=== PATIENT | male | born 1960 | race Caucasian/White ===

== ENCOUNTER → 2017-04-29 | Outpatient (CLI) | payer OTHER ==
--- NOTE | 2017-04-29 13:02 | RADIOLOGY REPORT (SQ) ---
EXAM DESCRIPTION: U/S RETROPERITON (RENAL/AORTA) COMPLETED DATE/TIME: 04/29/2017 10:42 am REASON FOR STUDY: HYDRONEPHROSIS, ABNORMAL LEFT TESTICLE R68.89 OTHER GENERAL SYMPTOMS AND SIGNS N1 8.3 CHRONIC KIDNEY DISEASE, STAGE 3 (MODERATE) N13.30 UNSPECIFIED HYDRONEPHROSIS COMPARISON: None. TECHNIQUE: Dynamic and static grayscale images acquired of the kidneys and bladder and recorded on P ACS. Additional selected color Doppler and spectral images recorded. LIMITATIONS: None. FINDINGS: RIGHT KIDNEY: Large cysts are present. The largest measures 14 cm. No identifiable renal parenchyma is present. LEFT KIDNEY: Normal size, 13 cm. Normal echogenicity. No masses. No hydronephrosis. No calcifica tions BLADDER: Normal. Left urinary jet is seen. OTHER FINDINGS: No other significant finding. IMPRESSION: 1. Large cysts are present on the right. No identifiable renal parenchyma was seen. 2. Normal left kidney. TECHNICAL DOCUMENTATION: JOB ID: [id number] [employer]- All Rights Reserved
--- NOTE | 2017-04-29 15:55 | RADIOLOGY REPORT (SQ) ---
EXAM DESCRIPTION: U/S SCROTUM W/DOPPLER COMPLETED DATE/TIME: 04/29/2017 10:42 am REASON FOR STUDY: HYDRONEPHROSIS, ABNORMAL LEFT TESTICLE R68.89 OTHER GENERAL SYMPTOMS AND SIGNS N1 8.3 CHRONIC KIDNEY DISEASE, STAGE 3 (MODERATE) N13.30 UNSPECIFIED HYDRONEPHROSIS COMPARISON: None. TECHNIQUE: Static and realtime singh scale imaging of the scrotum and testes. Selected color Doppler and spectral images recorded to document blood flow. LIMITATIONS: None. FINDINGS: RIGHT: TESTICLE: Normal size. Normal echotexture. Normal blood flow. No mass. EPIDIDYMIS: Normal. HYDROCELE OR VARICOCELE: Trace hydrocele HERNIA OR EXTRA-TESTICULAR MASS: No. OTHER: No other significant finding. LEFT: TESTICLE: Normal size. Normal echotexture. Normal blood flow. No mass. EPIDIDYMIS: Normal. HYDROCELE OR VARICOCELE: Large hydrocele, estimated 4.9 x 4.6 x 2.6 cm. HERNIA OR EXTRA-TESTICULAR MASS: No. OTHER: No other significant finding. IMPRESSION: Bilateral hydroceles, larger on the left. TECHNICAL DOCUMENTATION: JOB ID: [id number] [employer]- All Rights Reserved
== END ==
LOC: RAD 09:19
PROVIDERS: ATTEND Urology
DX: N18.3 Chronic kidney disease, stage 3 (moderate) (principal); N13.30 Unspecified hydronephrosis; R68.89 Other general symptoms and signs
CPT/HCPCS: 76770; 76870; 93976

== ENCOUNTER → 2019-09-03 | Outpatient (CLI) | payer OTHER ==
[2019-09-03 09:04] LABS: ABSOLUTE LYMPHOCYTES (AUTO) 1.2 10^3/uL (0.5-4.7); ABSOLUTE MONOCYTES (AUTO) 0.4 10^3/uL (0.1-1.4); ABSOLUTE NEUT (AUTO) 2.8 10^3/uL (1.7-8.2); BASOPHILS % (AUTO) 0.3 % (0-2); HEMATOCRIT 43.3 % (37.9-51.0); HEMOGLOBIN 15.1 g/dL (13.5-17.0); LYMPHOCYTES % (AUTO) 26.2 % (13-45); MEAN CORPUSCULAR HEMOGLOBIN 31.8 pg (27.0-33.4); MEAN CORPUSCULAR HGB CONC 34.9 g/dL (32.0-36.0); MEAN CORPUSCULAR VOLUME 91 fl (80-97); MONOCYTES % (AUTO) 9.2 % (3-13); PLATELET COUNT 179 10^3/uL (150-450); RED BLOOD COUNT 4.75 10^6/uL (4.35-5.55); SEGMENTED NEUTROPHILS % (AUTO) 63.3 % (42-78); TOTAL CELLS COUNTED % (AUTO) 100 %; WHITE BLOOD COUNT 4.4 10^3/uL (4.0-10.5)
[2019-09-03 09:20] LABS: ALBUMIN 4.4 g/dL (3.5-5.0); ANION GAP 10 (5-19); BLOOD UREA NITROGEN 13 mg/dL (7-20); CALCIUM 9.3 mg/dL (8.4-10.2); CARBON DIOXIDE 29 mmol/L (22-30); CHLORIDE 89 mmol/L (98-107); GLUCOSE 90 mg/dL (75-110); PHOSPHORUS 3.7 mg/dL (2.5-4.5); POTASSIUM 4.4 mmol/L (3.6-5.0)
[2019-09-03 09:31] LABS: APPEARANCE,URINE CLEAR; BILIRUBIN,URINE NEGATIVE (NEGATIVE); COLOR,URINE YELLOW; GLUCOSE, URINE NEGATIVE (NEGATIVE); KETONES,URINE NEGATIVE (NEGATIVE); LEUKOCYTE ESTERASE,URINE NEGATIVE (NEGATIVE); NITRITE,URINE NEGATIVE (NEGATIVE); PROTEIN,URINE NEGATIVE (NEGATIVE); URINE SPECIFIC GRAVITY 1.005; UROBILINOGEN,URINE NEGATIVE mg/dL (<2.0)
[2019-09-04 12:36] LABS: CREATININE URINE 60.6 mg/dL (Not Estab.); MICROALBUMIN URINE 4.7 ug/mL (Not Estab.)
== END ==
LOC: OD 08:24
PROVIDERS: ATTEND Internal Medicine Nephrology
DX: I12.9 Hypertensive chronic kidney disease with stage 1 through stage 4 chronic kidney disease, or unspecified chronic kidney disease (principal); N18.3 Chronic kidney disease, stage 3 (moderate); N13.30 Unspecified hydronephrosis; N13.9 Obstructive and reflux uropathy, unspecified
CPT/HCPCS: 36415; 80048; 81001; 82040; 82043; 82306; 82570; 83970; 84100; 85025

== ENCOUNTER → 2019-09-07 | Outpatient (CLI) | payer OTHER | LOC: OD 07:55 | PROVIDERS: ATTEND Internal Medicine Nephrology | DX: E87.1 Hypo-osmolality and hyponatremia (principal) | CPT/HCPCS: 36415; 84295 ==